=== PATIENT | male | born 1945 | race Caucasian/White ===

== ENCOUNTER 2016-06-30 05:13 | Emergency (ER) | payer MEDICARE, OTHER ==
[2016-06-30 06:03] LABS: #Basophils 0.2 thou/uL (0.0-0.2); #Lymphocytes 0.6 thou/uL (1.20-3.40); #Monocytes 0.9 thou/uL (0.11-0.59); #Neutrophils 10.2 thou/uL (1.40-6.50); %Basophils 1.3 % (0.0-1.0); %Eosinophils 0.2 % (0.0-10.0); %Lymphocytes 4.9 % (21.0-51.0); %Monocytes 7.8 % (0.0-10.0); %Neutrophils 85.9 % (42.0-75.0); Hemoglobin 14.8 g/dL (14.0-18.0); Mean Corpuscular HGB CONC 35.7 g/dL (32.0-36.0); Mean Corpuscular Hemoglobin 36.2 pg (27.0-31.0); Platelet Count 194 thou/uL (130-400); RBC Distribution Width 11.4 % (11.5-14.5); Red Blood Cell (RBC) Count 4.08 mill/uL (4.70-6.10); White Blood Cell (WBC) Count 11.9 thou/uL (4.8-10.8)
[2016-06-30 06:14] LABS: MDiff Complete? YES; Macrocytosis SLIGHT = 6-15 cells (100X) (0-5/hpf); PLT Morphology Comment Appears Adequate
[2016-06-30 06:15] LABS: ALT (SGPT) 12 U/L (8-55); AST (SGOT) 17 U/L (5-34); Albumin 3.5 g/dL (3.4-4.8); Alcohol Less than 10 mg/dL (Less than 10); Alkaline Phosphatase 122 U/L (40-150); Anion Gap 16 mmol/L (10-20); BUN (Urea Nitrogen) 9 mg/dL (8.4-25.7); Bilirubin, Total 1.1 mg/dL (0.2-1.2); Calc. Creatinine Clearance 0 mL/min (70-130); Calcium 8.6 mg/dL (7.8-10.44); Carbon Dioxide 25 mmol/L (23-31); Chloride 97 mmol/L (98-107); Estimated GFR-MDRD Greater than 90; Globulin 3.3 g/dL (2.4-3.5); Glucose 127 mg/dL (80-115); Potassium 3.8 mmol/L (3.5-5.1); Protein, Total 6.8 g/dL (5.8-8.1); Sodium 134 mmol/L (136-145)
[2016-06-30 06:16] LABS: Troponin I 0.011 ng/mL (< 0.028)
[2016-06-30] MEDS ORDERED: cefTRIAXone\\ROCEPHIN 2 GM VIAL ONE (06:26)
[2016-06-30] MEDS ORDERED: Sodium Chloride 0.9% 100 ML ONE (06:26)
[2016-06-30 06:27] LABS: CKMB 6.9 ng/mL (0-6.6)
[2016-06-30] MEDS ORDERED: Thiamine HCl 200 MG/2 ML VIAL ONE (06:48)
--- NOTE | 2016-06-30 07:11 | RAD ---
PORTABLE CHEST: Date: 06/30/16 An AP portable film at 0545 hours is compared with the 08/31/14 study. FINDINGS: The heart is not enlarged. There does appear to be some slight blunting of the right costophrenic an gle, so I cannot exclude a small amount of fluid here. In general, the vasculature seems slightly co ngested compared to before. A cardiac pacer is in place. The left lung is clear. IMPRESSION: Presumed small right pleural effusion. Possible slight congestion of vessels. POS: HOME
== END 2016-06-30 08:57 ==
LOC: BURERS 05:13
DX: J44.0 Chronic obstructive pulmonary disease with (acute) lower respiratory infection (principal); J18.9 Pneumonia, unspecified organism; J45.909 Unspecified asthma, uncomplicated; E03.9 Hypothyroidism, unspecified; E78.5 Hyperlipidemia, unspecified; I10 Essential (primary) hypertension; F32.9 Major depressive disorder, single episode, unspecified; F17.210 Nicotine dependence, cigarettes, uncomplicated; Z95.0 Presence of cardiac pacemaker; Z79.82 Long term (current) use of aspirin
CPT/HCPCS: 36415; 71010; 80053; 80307; 82553; 83605; 83880; 84484; 85025; 87040; 93005; 94640; 94760; 96365; 96375; J0696; J3411; J7050; J7620

== ENCOUNTER 2016-10-08 08:58 | Emergency (ER) | payer OTHER ==
[2016-10-08 09:37] LABS: #Basophils 0.1 thou/uL (0.0-0.2); #Eosinphils 0.2 thou/uL (0.0-0.7); #Lymphocytes 0.8 thou/uL (1.20-3.40); #Monocytes 0.8 thou/uL (0.11-0.59); #Neutrophils 10.2 thou/uL (1.40-6.50); %Basophils 0.8 % (0.0-1.0); %Eosinophils 1.5 % (0.0-10.0); %Lymphocytes 6.8 % (21.0-51.0); %Monocytes 6.6 % (0.0-10.0); %Neutrophils 84.2 % (42.0-75.0); Hemoglobin 12.2 g/dL (14.0-18.0); Mean Corpuscular HGB CONC 33.1 g/dL (32.0-36.0); Mean Corpuscular Hemoglobin 33.1 pg (27.0-31.0); Mean Platelet Volume 5.4 fL (7.4-10.4); Platelet Count 184 thou/uL (130-400); RBC Distribution Width 13.2 % (11.5-14.5); White Blood Cell (WBC) Count 12.2 thou/uL (4.8-10.8)
[2016-10-08 09:45] LABS: ALT (SGPT) 12 U/L (8-55); AST (SGOT) 11 U/L (5-34); Alkaline Phosphatase 101 U/L (40-150); Anion Gap 13 mmol/L (10-20); BUN (Urea Nitrogen) 8 mg/dL (8.4-25.7); Bilirubin, Total 0.5 mg/dL (0.2-1.2); Calc. Creatinine Clearance 0 mL/min (70-130); Calcium 9.1 mg/dL (7.8-10.44); Carbon Dioxide 29 mmol/L (23-31); Chloride 101 mmol/L (98-107); Estimated GFR-MDRD Greater than 90; Globulin 3.2 g/dL (2.4-3.5); Glucose 99 mg/dL (80-115); Potassium 4.1 mmol/L (3.5-5.1); Protein, Total 7.2 g/dL (5.8-8.1); Sodium 139 mmol/L (136-145)
[2016-10-08 09:50] LABS: CKMB 1.7 ng/mL (0-6.6); Troponin I Less than 0.010 ng/mL (< 0.028)
[2016-10-08 09:55] LABS: Bilirubin Negative (Negative); Blood, Urine Negative (Negative); Clarity Clear (Clear); Glucose, Urine (Dipstick) Negative (Negative); Leukocyte Negative (Negative); Nitrite Negative (Negative); Protein, Urine (Dipstick) Negative (Neg-Trace); Specific Gravity, Urine 1.015 (1.005-1.030); Urobilinogen 0.2 mg/dL (0.2-1.0); pH, Urine 6.5 (5.0-9.0)
[2016-10-08 09:56] LABS: INR-International Normal Ratio 1.3; Prothrombin Time 16.4 SEC (12.0-14.7)
[2016-10-08 09:58] LABS: D-Dimer Test 0.36 *mcg/mL (0.27-0.43)
[2016-10-08] MEDS ORDERED: Piperacillin/Tazobactam 2.25 GM in Sodium Chloride 0.9% 100 ML IVPB SCH (11:30)
--- NOTE | 2016-10-08 18:13 | RAD ---
PORTABLE CHEST: 10/08/16 An AP portable film at 0914 is compared with the 07/10/16 study. There is a consolidation seen in the right lung, probably in the superior portion of the right lower lobe. A very minimal amount of pleural fluid is present. The finding presumably represents pneumon ia, but other entities are possible. See CT report to follow. The left lung is clear. The heart is normal in size. A bipolar cardiac pacer is in place. IMPRESSION: Right lung consolidation, most consistent with pneumonia. See CT report to follow. POS: HOME
--- NOTE | 2016-10-08 18:19 | CT ---
CT ANGIO OF THE CHEST WITH CONTRAST: 10/08/[address] of the chest was performed for evaluation of an abnormal chest x-ray, hemoptysis, and an e levated D-dimer. The x-ray showed a right sided consolidation. Significantly, there was a consolidat ion in a similar location on a June study. Axial slices were acquired after a bolus of IV contrast. C oronal and oblique coronal reformations were then done. There is an extensive area of consolidation in the superior segment of the right lower lobe. It is presumed to be pneumonia. I do not see a cent rally obstructing mass. There are a few patchy infiltrative areas in the right middle lobe as well, but they are quite small. The left lung is relatively clear. There is a small amount of pleural flui d on the right. It should be noted that there was an infiltrate in this location on a June chest x-ray. The recurrenc e (or lack of complete clearing) in the interval is worrisome in this age group. I would strongly sanders ggest a pulmonary referral and consideration for possible bronchoscopy to be sure that there is no e ndobronchial obstructing lesion. The mediastinum showed no mass or significant adenopathy. The pulmonary arteries are moderately well opacified and show no definite signs of pulmonary emboli. There is no sign of aortic dissection or aneurysm. Some calcifications are suggested in the coronary arteries. Scans into the upper abdomen showed no acute change. Cysts are suggested in each kidney (the kidneys were seen incompletely, the largest being on the right. IMPRESSION: 1. No evidence of pulmonary embolism. 2. Dense consolidation of the superior segment of the right lower lobe. Pneumonia is presumed, but being in the same location as before, I would strongly recommend pulmonary referral and possible bronchoscopy. POS: HOME
== END 2016-10-08 12:20 ==
LOC: BURERS 08:58
DX: J18.9 Pneumonia, unspecified organism (principal); E03.9 Hypothyroidism, unspecified; E78.5 Hyperlipidemia, unspecified; I10 Essential (primary) hypertension; J44.9 Chronic obstructive pulmonary disease, unspecified; F32.9 Major depressive disorder, single episode, unspecified; Z79.51 Long term (current) use of inhaled steroids; Z79.899 Other long term (current) drug therapy
CPT/HCPCS: 36415; 71010; 71275; 80053; 81003; 82553; 83880; 84484; 85025; 85379; 85610; 87040; 87070; 87205; 93005; 96365; J2543; J7050